=== PATIENT | female | born 1965 | race Caucasian/White ===

== ENCOUNTER 2016-11-18 11:33 | Emergency (ER) | payer OTHER ==
[2016-11-18 12:29] VITALS: BP 125/75
--- NOTE | 2016-11-18 13:41 | UC ---
UC General HPI - HPI Summary HPI Summary: 51 y/o female with multiple complaints - patient states has had continued back pain/ sacral pain since last seen on 2015. She states pain had improved slightly, but noted over past few months pain has increased to where she is unable to walk well, to her house chores. She states she needs medication to function. She has an appointment with a new primary physician in december. - patient was d/c'd from Dr. kumari's office in [place] due to rescheduling 3 times. She does not have refills on her medication. She is a diabetic. - History of Current Complaint Chief Complaint: UCBackPain Stated Complaint: BACK PAIN Time Seen by Provider: 11/18/16 12:58 Hx Obtained From: Patient Hx Last Menstrual Period: 05/07/12 Onset/Duration: Gradual Onset, Lasting Weeks Onset Severity: Moderate Current Severity: Moderate Pain Location at: lower back, sacrum Pain Radiates to: none Character: sharp, stabbing, throbbing, achy Aggravating: movement, sitting Alleviating: rest Associated Signs & Symptoms: Positive: Back Pain - Allergy/Home Medications Allergies/Adverse Reactions: Allergies Allergy/AdvReac Type Severity Reaction Status Date / Time No Known Allergies Allergy Verified 01/15/16 20:21 PMH/Surg Hx/FS Hx/Imm Hx Previously Healthy: No Endocrine History: Diabetes Respiratory History: Other - + TOb Other Respiratory History: + tob use Other History Of: Negative For: HIV, Hepatitis B, Hepatitis C, Anticoagulant Therapy - Surgical History Surgical History: Yes Surgery Procedure, Year, and Place: right ankle surgery r/t fx and dislocation - Family History Known Family History: Positive: Hypertension, Diabetes - Social History Alcohol Use: None Substance Use Type: None Smoking Status (MU): Light Every Day Tobacco Smoker Type: Cigarettes Amount Used/How Often: 1/2 ppd - Immunization History Most Recent Influenza Vaccination: fall 2014 Review of Systems Constitutional: Negative Skin: Negative Eyes: Negative ENT: Negative Respiratory: Negative Cardiovascular: Negative Gastrointestinal: Negative Genitourinary: Frequency, Urgency Motor: Negative Neurovascular: Negative Musculoskeletal: Arthralgia, Myalgia Neurological: Negative Psychological: Negative Is Patient Immunocompromised?: No All Other Systems Reviewed And Are Negative: Yes Physical Exam Triage Information Reviewed: Yes Appearance: Well-Appearing, Well-Nourished, Pain Distress - minimal at rest, moderate with movement Vital Signs: Initial Vital Signs Temp 98.5 F 11/18/16 12:24 Pulse 78 11/18/16 12:24 Resp 18 11/18/16 12:24 BP 125/75 11/18/16 12:24 Pulse Ox 97 11/18/16 12:24 Vital Signs Reviewed: Yes Cardiovascular: Positive: RRR, No Murmur, Pulses Normal - PT 2+ b/l Abdomen Description: Positive: Nontender, No Organomegaly, Soft Musculoskeletal: Positive: ROM Intact, Strength Limited @ - decreased strength with knee extension b/l 3/5 due to pain full flex, straight leg negative, Other : - neg log roll hips Neurological Exam: Normal Neurological: Positive: Alert, Muscle Tone Normal Psychological Exam: Normal Skin Exam: Normal Course/Dx - Course Course Of Treatment: Unable to verify with phamacy meds due to pharm computer being down, written for 10 day course of home meds, schedule appointment with physician sooner. lidoderm patch, motrin for back pain. - Differential Dx - Multi-Symptom Provider Diagnoses: lower back strain, OA lumbar spine, medication refill Discharge - Discharge Plan Condition: Good Disposition: HOME Prescriptions: Glucose Blood [Glucose Meter Test Strips] 1 benito ACHS #90 benito Ibuprofen TAB* [Motrin TAB* 600 MG] 600 mg PO Q8H PRN #30 tab PRN Reason: Pain Lancets 1 mis XX ACHS #90 mis Lidocaine PATCH 5%* [Lidoderm 5% Patch*] 1 patch TRANSDERM DAILY #15 patch Pravastatin Sodium [Pravachol] 20 mg PO DAILY #10 tab Sitagliptin Phosphate [Januvia] 50 mg PO DAILY #10 tab Patient Education Materials: Low Back Strain (ED) Referrals: No Primary Care Phys,NOPCP [Primary Care Provider] - Additional Instructions: - Follow up with primary physician within 1 week for check on medication and for refills, call for appointment - Lidoderm patch for back pain for mild- moderate pain
--- NOTE | 2016-11-18 13:45 | RAD ---
HISTORY: Sacral pain COMPARISONS: January 15, 2016, December 25, 2011 VIEWS: 5 , Frontal, lateral, coned-down lateral sacral, and bilateral oblique views of the lumbar spine. FINDINGS: ALIGNMENT: There is grade 1 anterolisthesis of L4 on L5 VERTEBRAL BODIES: The vertebral body heights are normal. The interpedicular distances are normal. There is anterolateral marginal osteophyte formation most pronounced at L1-L2. JOINTS: There is extensive facet osteoarthritic change most pronounced along the lower lumbar spine INTERVERTEBRAL DISCS: There is mild diffuse loss of intervertebral disc height. SOFT TISSUE: Unremarkable. OTHER: The pelvis is unremarkable. The lung bases are clear. IMPRESSION: FACET OSTEOARTHRITIS WITH DEGENERATIVE DISC DISEASE MOST PRONOUNCED ALONG THE LOWER LUMBAR SPINE
== END 2016-11-18 14:43 | disposition home or self-care (01) ==
LOC: UCEAST 11:33
DX: S39.012A Strain of muscle, fascia and tendon of lower back, initial encounter (principal); Y92.9 Unspecified place or not applicable; M47.896 Other spondylosis, lumbar region; Z76.0 Encounter for issue of repeat prescription; Z72.0 Tobacco use
CPT/HCPCS: 72110; 99212; G0463

== ENCOUNTER 2017-04-01 12:44 | Emergency (ER) | payer OTHER ==
[2017-04-01 13:01] VITALS: BP 135/70
--- NOTE | 2017-04-01 13:10 | UC ---
Back Pain HPI - HPI Summary HPI Summary: Pt presents with multiple complaints. She is accompanied by her niece. 1) She has been having b/l flank pain that is 10/10 for the last 10 days. Says it is getting progressively worse. Has dysuria and burning with urination for the last 3-4 days. 2) She has generalized abdominal discomfort that is cramping and "aches". She thinks she is , but says she has not had a menstrual period in many years. She has been nauseous with a decreased appetite for the last 2-3 days. 3) For the last 3 days she has felt very dizzy, lightheaded, and feels like she wants to "pass out" if she stands too long. 4) She is diabetic and has not been taking her Metformin due to her recent illness - thinks her sugar is up today. Has felt hot and cold with chills at times. Denies SOB, chest pain, vomiting, diarrhea, vaginal discharge/odor/bleeding, headache, vision changes, rashes, numbness, or tingling. - History of Current Complaint Chief Complaint: UCGeneralIllness Stated Complaint: LOWER BACK PAIN NAUSEA Time Seen by Provider: 04/01/17 12:54 Hx Obtained From: Patient, Family/Mental Health Advanced Practice Nurse Hx Last Menstrual Period: unknown ?: No Onset/Duration: Gradual Onset Timing: Constant Severity Initially: Severe Severity Currently: Severe Pain Intensity: 10 Pain Scale Used: 0-10 Numeric - Allergies/Home Medications Allergies/Adverse Reactions: Allergies Allergy/AdvReac Type Severity Reaction Status Date / Time No Known Allergies Allergy Verified 04/01/17 13:02 Home Medications: Home Medications Citalopram TAB* [Celexa TAB*] 40 mg PO DAILY 04/01/17 [History Confirmed ] Venlafaxine ER (NF) [Effexor ER (NF)] 150 mg PO BEDTIME 04/01/17 [History Confirmed 04/01/17] PMH/Surg Hx/FS Hx/Imm Hx Endocrine History: Diabetes, Dyslipidemia Cardiovascular History: Hypertension Psychological History: Anxiety, Depression Other History Of: Negative For: HIV, Hepatitis B, Hepatitis C, Anticoagulant Therapy - Surgical History Surgical History: Yes Surgery Procedure, Year, and Place: right ankle surgery r/t fx and dislocation - Family History Known Family History: Positive: Hypertension, Diabetes - Social History Lives: With Family Alcohol Use: None Substance Use Type: None Smoking Status (MU): Light Every Day Tobacco Smoker Type: Cigarettes Amount Used/How Often: 1/2 ppd - Immunization History Most Recent Influenza Vaccination: fall 2014 Review of Systems Constitutional: Fever, Chills, Fatigue, Other - Body aches Skin: Negative Eyes: Negative ENT: Negative Respiratory: Cough Cardiovascular: Negative Gastrointestinal: Abdominal Pain, Nausea Genitourinary: Dysuria, Frequency, Urgency Motor: Negative Neurovascular: Negative Musculoskeletal: Other: - b/l flank pain Neurological: Negative Psychological: Negative All Other Systems Reviewed And Are Negative: Yes Physical Exam Triage Information Reviewed: Yes Completion Of Physical Exam Limited Due To: Patient is uncooperative with exam - Would only remain lying on exam table and said it hurt to move Appearance: Ill-Appearing, Pain Distress, Obese Vital Signs: Initial Vital Signs Temp 98.6 F 04/01/17 12:53 Pulse 91 04/01/17 12:53 Resp 16 04/01/17 12:53 BP 135/70 04/01/17 12:53 Pulse Ox 100 04/01/17 12:53 Vital Signs Reviewed: Yes Eyes: Positive: Conjunctiva Clear, Other: - EOMI. Negative: Conjunctiva Inflamed, Discharge ENT: Positive: Hearing grossly normal, Pharynx normal, TMs normal, Uvula midline. Negative: Pharyngeal erythema, Nasal congestion, Nasal drainage, TM bulging, TM dull, TM red, Tonsillar swelling, Tonsillar exudate, Hoarse voice, Sinus tenderness Neck: Positive: Supple, No Lymphadenopathy, Other: - FORM. NTTP. Respiratory: Positive: Lungs clear, Normal breath sounds, No respiratory distress, No accessory muscle use Cardiovascular: Positive: RRR, No Murmur, Pulses Normal Abdomen Description: Positive: No Organomegaly, Soft, CVA Tenderness (R), CVA Tenderness (L), Other: - Generalized pain in all quads when palpated.. Negative : Distended, Guarding, [place] Tenderness Bowel Sounds: Positive: Present Neurological: Positive: Fatigued Skin: Negative: rashes, significant lesion(s) Back Pain Course/Dx - Course Course Of Treatment: POC glucose 303. Given her abomdinal pain, hyperglycemia, b/l flank pain, dizziness, and likely need for more comprehensive testing - I advised her to be seen in the ED. She and her family were agreeable to this and elected to go by ambulance. - Differential Dx/Diagnosis Provider Diagnoses: DM2 uncontrolled. Body aches. Dizziness. Generalized abdominal pain. Dysuria. Nausea Discharge - Discharge Plan Condition: Stable Disposition: TRANS HIGHER LVL OF CARE FAC Referrals: No Primary Care Phys,NOPCP [Primary Care Provider] -
== END 2017-04-01 13:44 | disposition short-term general hospital (02) ==
LOC: UCEAST 12:44
DX: E11.65 Type 2 diabetes mellitus with hyperglycemia (principal); Z91.14 Patient's other noncompliance with medication regimen; E78.5 Hyperlipidemia, unspecified; I10 Essential (primary) hypertension; F41.9 Anxiety disorder, unspecified; F32.9 Major depressive disorder, single episode, unspecified; F17.210 Nicotine dependence, cigarettes, uncomplicated
CPT/HCPCS: 99213; G0463

== ENCOUNTER 2017-04-01 14:01 | Emergency (ER) | payer OTHER ==
[2017-04-01 14:54] LABS: Urine Appearance Clear; Urine Blood Negative (Negative); Urine Color Straw; Urine Ketones Negative (Negative); Urine Protein Negative (Negative); Urine Specific Gravity 1.007 (1.010-1.030); Urine Urobilinogen Negative (Negative)
[2017-04-01 15:09] LABS: ABS Basophils 0.1 10^3/ul (0-0.2); ABS Eosinophils 0.1 10^3/ul (0-0.6); ABS Lymphocytes 1.8 10^3/ul (1.0-4.8); ABS Monocytes 0.3 10^3/ul (0-0.8); ABS Neutrophils 3.5 10^3/ul (1.5-7.7); ABS Nucleated RBC 0 10^3/ul; Hematocrit 42 % (35-47); Hemoglobin 14.6 g/dl (12.0-16.0); Mean Corpuscular HGB Conc 35 g/dl (31-36); Mean Corpuscular Hemoglobin 31 pg (27-31); Mean Corpuscular Volume 88 fL (80-97); Mean Platelet Volume 8 um3 (7.4-10.4); Nucleated Red Blood Cells % 0; Platelet Count 291 10^3/ul (150-450); Red Blood Count 4.74 10^6/ul (4.0-5.4); Red Cell Distribution Width 13 % (10.5-15); White Blood Count 5.7 10^3/ul (3.5-10.8)
[2017-04-01] MEDS ORDERED: Ketorolac INJ* 60 MG/2 ML VIAL IM ONE (16:26)
[2017-04-01 16:32] VITALS: BP 117/78
--- NOTE | 2017-04-01 18:21 | ED ---
Lashay Ladd Nilda, scribed for Charlie Martinez MD on 04/01/17 at 1447 . Complex/Multi-Sys Presentation - HPI Summary HPI Summary: This patient is a 51 year old F BIBA to [facility] with a chief complaint of constant back pain for the past 1.5 weeks. The patient rates the aching back pain 10/10 in severity. Symptoms aggravated and alleviated by nothing. Patient reports nausea, morning sickness, and heartburn. Pt states she believe she's "because I feel movement." Pt states tests were negative for the past four of her kids, and she was only able to confirm via sonogram. - History Of Current Complaint Chief Complaint: EDNauseaVomitDiarrh Time Seen by Provider: 04/01/17 14:14 Hx Obtained From: Patient Onset/Duration: Lasting Weeks Timing: Constant Severity Currently: Severe - 10/10 Location: Pain At: - back Aggravating Factor(s): nothing Alleviating Factor(s): nothing Associated Signs And Symptoms: Positive: Other - nausea, "morning sickness," heartburn, back pain - Allergies/Home Medications Allergies/Adverse Reactions: Allergies Allergy/AdvReac Type Severity Reaction Status Date / Time No Known Allergies Allergy Verified 04/01/17 13:02 PMH/Surg Hx/FS Hx/Imm Hx Endocrine/Hematology History: Reports: Hx Diabetes - type 2 dm Denies: Hx Anticoagulant Therapy, Hx Thyroid Disease Cardiovascular History: Reports: Hx Hypercholesterolemia Denies: Hx Congestive Heart Failure, Hx Deep Vein Thrombosis, Hx Hypertension , Hx Myocardial Infarction, Hx Pacemaker/ICD Respiratory History: Reports: Other Respiratory Problems/Disorders - current smoker Denies: Hx Asthma, Hx Chronic Obstructive Pulmonary Disease (COPD), Hx Lung Cancer, Hx Pneumonia, Hx Pulmonary Embolism GI History: Reports: Hx Gastroesophageal Reflux Disease Denies: Hx Gall Bladder Disease, Hx Gastrointestinal Bleed, Hx Ulcer, Hx Urosepsis History: Denies: Hx Kidney Stones, Hx Renal Disease Musculoskeletal History: Reports: Hx Back Problems - chronic back pain Neurological History: Reports: Other Neuro Impairments/Disorders - CHRONIC BACK PAIN Denies: Hx Dementia, Hx Migraine, Hx Seizures, Hx Transient Ischemic Attacks (TIA) Psychiatric History: Reports: Hx Anxiety, Hx Depression, Hx Inpatient Treatment - [facility]- ETOH, marijuana, alcohol, cocaine Denies: Hx Schizophrenia, Hx Bipolar Disorder, Hx Substance Abuse - Surgical History Surgery Procedure, Year, and Place: right ankle surgery r/t fx and dislocation Infectious Disease History: No Infectious Disease History: Denies: Hx Clostridium Difficile, Hx Hepatitis, Hx Human Immunodeficiency Virus (HIV), Hx of Known/Suspected MRSA, Hx Shingles, Hx Tuberculosis, Hx Known/ Suspected VRE, Hx Known/Suspected VRSA, History Other Infectious Disease, Traveled Outside the [place] in Last 30 Days - Family History Known Family History: Positive: Hypertension, Diabetes - Social History Alcohol Use: None Substance Use Type: Reports: None Smoking Status (MU): Heavy Every Day Tobacco Smoker Type: Cigarettes Amount Used/How Often: 1/2 ppd Review of Systems Positive: Other - "heartburn" Positive: Nausea, Other - "morning sickness" Positive: Other - back pain All Other Systems Reviewed And Are Negative: Yes Physical Exam - Summary Physical Exam Summary: VITAL SIGNS: Reviewed. GENERAL: Patient is a well-developed and nourished female who is lying comfortable in the stretcher. Patient is not in any acute respiratory distress. HEAD AND FACE: No signs of trauma. No ecchymosis, hematomas or skull depressions. No sinus tenderness. EYES: PERRLA, EOMI x 2, No injected conjunctiva, no nystagmus. EARS: Hearing grossly intact. Ear canals and tympanic membranes are within normal limits. MOUTH: Oropharynx within normal limits. NECK: Supple, trachea is midline, no adenopathy, no JVD, no carotid bruit, no c- spine tenderness, neck with full ROM. CHEST: Symmetric, no tenderness at palpation LUNGS: Clear to auscultation bilaterally. No wheezing or crackles. CVS: Regular rate and rhythm, S1 and S2 present, no murmurs or gallops appreciated. ABDOMEN: Soft, non-tender. No signs of distention. No rebound no guarding, and no masses palpated. Bowel sounds are normal. EXTREMITIES: FROM in all major joints, no edema, no cyanosis or clubbing. NEURO: Alert and oriented x 3. No acute neurological deficits. Speech is normal and follows commands. SKIN: Dry and warm Triage Information Reviewed: Yes Vital Signs On Initial Exam: Initial Vitals Temp Pulse Resp BP Pulse Ox 98.3 F 77 11 126/63 98 04/01/17 14:23 04/01/17 14:23 04/01/17 14:23 04/01/17 14:23 04/01/17 14:23 Vital Signs Reviewed: Yes Diagnostics - Vital Signs Vital Signs Temp Pulse Resp BP Pulse Ox 04/01/17 14:34 73 23 94 04/01/17 14:33 110/72 04/01/17 14:23 98.3 F 77 11 126/63 98 - Laboratory Lab Results: Lab Results 04/01/17 04/01/17 04/01/17 Range/Units 14:35 14:55 14:55 WBC 5.7 (3.5-10.8) 10^3/ul RBC 4.74 (4.0-5.4) 10^6/ul Hgb 14.6 (12.0-16.0) g/dl Hct 42 (35-47) % MCV 88 (80-97) fL MCH 31 (27-31) pg MCHC 35 (31-36) g/dl RDW 13 (10.5-15) % Plt Count 291 (150-450) 10^3/ul MPV 8 (7.4-10.4) um3 Neut % (Auto) 60.7 (38-83) % Lymph % (Auto) 31.0 (25-47) % [place] % (Auto) 6.1 (1-9) % Eos % (Auto) 1.0 (0-6) % Baso % (Auto) 1.2 (0-2) % Absolute Neuts (auto) 3.5 (1.5-7.7) 10^3/ul Absolute Lymphs (auto) 1.8 (1.0-4.8) 10^3/ul Absolute Monos (auto) 0.3 (0-0.8) 10^3/ul Absolute Eos (auto) 0.1 (0-0.6) 10^3/ul Absolute Basos (auto) 0.1 (0-0.2) 10^3/ul Absolute Nucleated RBC 0 10^3/ul Nucleated RBC % 0 Sodium 133 (133-145) mmol/L Potassium 3.9 (3.5-5.0) mmol/L Chloride 100 L (101-111) mmol/L Carbon Dioxide 26 (22-32) mmol/L Anion Gap 7 (2-11) mmol/L BUN 13 (6-24) mg/dL Creatinine 0.61 (0.51-0.95) mg/dL Est GFR ( Amer) 132.5 (>60) Est GFR (Non-Af Amer) 103.0 (>60) BUN/Creatinine Ratio 21.3 H (8-20) Glucose 313 H (70-100) mg/dL Calcium 9.5 (8.6-10.3) mg/dL Total Bilirubin 0.50 (0.2-1.0) mg/dL AST 11 L (13-39) U/L ALT 15 (7-52) U/L Alkaline Phosphatase 90 (34-104) U/L C-Reactive Protein 6.50 H (< 5.00) mg/L Total Protein 7.0 (6.4-8.9) g/dL Albumin 3.9 (3.2-5.2) g/dL Globulin 3.1 (2-4) g/dL Albumin/Globulin Ratio 1.3 (1-3) Beta HCG, Quant 2.28 mIU/mL Urine Color Straw Urine Appearance Clear Urine pH 7.0 (5-9) Ur Specific [place] 1.007 L (1.010-1.030) Urine Protein Negative (Negative) Urine Ketones Negative (Negative) Urine Blood Negative (Negative) Urine Nitrate Negative (Negative) Urine Bilirubin Negative (Negative) Urine Urobilinogen Negative (Negative) Ur Leukocyte Esterase Negative (Negative) Urine Glucose 3+(>=500 mg/dl) H (Negative) Result Diagrams: 04/01/17 14:55 04/01/17 14:55 Lab Statement: Any lab studies that have been ordered have been reviewed, and results considered in the medical decision making process. Complex Multi-Symp Course/Dx Assessment/Plan: This patient is a 51 year old F BIBA to [facility] with a chief complaint of constant back pain for the past 1.5 weeks. The patient rates the aching back pain 10/10 in severity. Symptoms aggravated and alleviated by nothing. Patient reports nausea, morning sickness, and heartburn. Pt states she believe shes because "I feel movement." Pt states tests were negative for the past four of her kids, and she was only able to confirm via sonogram. Pending labs. Test results are w/o significant abnormality except glucose 313. Serum beta HCG is negative for . UA is negative for UTI. Therefore, pt waa given Toradol for back pain and will be D/C home with follow up with PCP. The pt is hemodynamically stable, alert and oriented x3. Pt has no SI or HI. Dx. Back pain. Pt understands and is agreeable with this plan. - Diagnoses Differential Diagnoses/HQI/PQRI: Urinary Tract Infection, Other - Back pain. strain, UTI, Provider Diagnoses: Back pain Discharge - Discharge Plan Condition: Stable Disposition: HOME Patient Education Materials: Back Pain (ED) Referrals: [facility] [place] PHYSICIAN REFERRAL [Outside] - 3 Days () Additional Instructions: RETURN TO THE EMERGENCY DEPARTMENT FOR CHANGING OR WORSENING SYMPTOMS. The documentation as recorded by the Lashay leyva Nilda accurately reflects the service I personally performed and the decisions made by Juan valle Walter, MD.
== END 2017-04-01 17:05 | disposition home or self-care (01) ==
LOC: ED 14:01
DX: M54.9 Dorsalgia, unspecified (principal); F17.210 Nicotine dependence, cigarettes, uncomplicated; E11.9 Type 2 diabetes mellitus without complications; E78.00 Pure hypercholesterolemia, unspecified; G89.29 Other chronic pain
CPT/HCPCS: 36415; 80053; 81003; 84702; 85025; 86140; 99282; J1885

== ENCOUNTER 2018-07-07 08:57 | Emergency (ER) | payer SELFPAY ==
--- NOTE | 2018-07-07 10:26 | UC ---
Back Pain HPI - HPI Summary HPI Summary: PATIENT WALKED OUT ONTO HER PORCH 2 DAYS AGO WHEN SHE FELL THROUGH A BROKEN FLOORBOARD AND INJURED HER LOW BACK AND RIGHT FOOT. STATES SHE HAS PAIN RADIATING DOWN THE BACK OF HER LEFT LEG. DENIES ANY NUMBNESS, TINGLING OR SADDLE ANESTHESIA. NO LOSS OF BOWEL OR BLADDER CONTROL. RIGHT FOOT IS RED AND SWOLLEN AND SHE HAS PAIN WHEN AMBULATING. - History of Current Complaint Chief Complaint: UCBackPain Stated Complaint: BACK/LEG PAIN Time Seen by Provider: 07/07/18 10:14 Hx Obtained From: Patient Hx Last Menstrual Period: unknown Onset/Duration: Sudden Onset, Lasting Days, Still Present Timing: Constant Severity Initially: Moderate Severity Currently: Moderate Pain Intensity: 10 Pain Scale Used: 0-10 Numeric Back Pain: Is Discrete @ - LOW BACK Character: Sharp Aggravating Factor(s): Movement, Bending Alleviating Factor(s): Rest Associated Signs And Symptoms: Negative: Swelling, Redness, Bruising, Weakness, Numbness, Bladder Incontinence, Bowel Incontinence - Allergies/Home Medications Allergies/Adverse Reactions: Allergies Allergy/AdvReac Type Severity Reaction Status Date / Time No Known Allergies Allergy Verified 07/07/18 09:06 Home Medications: Home Medications Ascorbic Acid TAB* [Vitamin C TAB*] 1,000 mg PO DAILY 07/07/18 [History Confirmed 07/07/18] Cholecalciferol TAB* [Vitamin D TAB*] 400 mg PO DAILY 07/07/18 [History Confirmed 07/07/18] [place]-3 Fatty Acids/Fish Oil [Fish Oil 1,000 mg Softgel] 1 cap PO DAILY [History Confirmed 07/07/18] PMH/Surg Hx/FS Hx/Imm Hx - Additional Past Medical History Additional PMH: FIBROMYALGIA Endocrine History: Diabetes, Dyslipidemia Psychological History: Anxiety, Depression Other History Of: Negative For: HIV, Hepatitis B, Hepatitis C, Anticoagulant Therapy - Surgical History Surgical History: Yes Surgery Procedure, Year, and Place: right ankle surgery r/t fx and dislocation - Family History Known Family History: Positive: Hypertension, Diabetes - Social History Alcohol Use: None Substance Use Type: None Smoking Status (MU): Heavy Every Day Tobacco Smoker Type: Cigarettes Amount Used/How Often: 1/2 ppd - Immunization History Most Recent Influenza Vaccination: fall 2014 Review of Systems All Other Systems Reviewed And Are Negative: Yes Constitutional: Positive: Negative Skin: Positive: Other - RIGHT FOOT REDNESS. Negative: Bruising Respiratory: Positive: Negative Cardiovascular: Positive: Negative Gastrointestinal: Positive: Negative Musculoskeletal: Positive: Arthralgia, Decreased ROM, Edema, Myalgia Physical Exam Triage Information Reviewed: Yes Appearance: Well-Appearing, No Pain Distress, Well-Nourished Vital Signs: Initial Vital Signs Temp 98.0 F 07/07/18 09:11 Pulse 93 07/07/18 09:11 Resp 18 07/07/18 09:11 BP 133/92 07/07/18 09:11 Pulse Ox 96 07/07/18 09:11 Vital Signs Reviewed: Yes Eyes: Positive: Conjunctiva Clear ENT: Positive: Hearing grossly normal Neck: Positive: Supple Respiratory: Positive: No respiratory distress, No accessory muscle use Cardiovascular: Positive: Pulses Normal Abdomen Description: Positive: Soft Musculoskeletal: Positive: ROM Limited @, Edema @ - RIGHT FOOT/TOES, Other: - TTP RIGHT FOREFOOT AND TOES 1-4. Neurological: Positive: Alert Psychological: Positive: Age Appropriate Behavior Skin: Positive: Other - ROGHT FOOT REDNESS Diagnostics - Radiology L-SPINE XRAYS Radiology Interpretation Completed By: Radiologist Summary of Radiographic Findings: DEGENERATIVE DISC DISEASE AND OSTEOARTHRITIS. NO ACUTE OSSEOUS INJURY. RIGHT FOOT XRAYS Radiology Interpretation Completed By: Radiologist Summary of Radiographic Findings: STATUS POST RIGHT ANKLE ORIF. NO ACUTE OSSEOUS INJURY Back Pain Course/Dx - Differential Dx/Diagnosis Provider Diagnosis: Acute low back pain, Right foot sprain Discharge - Sign-Out/Discharge Documenting (check all that apply): Patient Departure All imaging exams completed and their final reports reviewed: Yes - Discharge Plan Condition: Stable Disposition: HOME Patient Education Materials: Osteoarthritis (ED), Contusion in Adults (ED), Foot Sprain (ED), Degenerative Disc Disease (ED) Referrals: Starla Spangler MD [Medical Doctor] - If Needed Miguel Ángel Koenig MD [Primary Care Provider] - If Needed Additional Instructions: X-RAYS OF YOUR LUMBAR SPINE TODAY SHOW SOME DEGENERATIVE DISC DISEASE AND OSTEOARTHRITIS. YOU LIKELY CAUSED A FLARE OF THESE CONDITIONS WHEN YOU FELL 2 DAYS AGO. TAKE OTC MEDICATION NEEDED FOR DISCOMFORT. BE SURE TO GO THROUGH SLOW RANGE OF MOTION AND STRETCHING EXERCISES DAILY TO PREVENT STIFFENING UP AND MAKING THE DISCOMFORT WORSE. X-RAYS OF THE RIGHT FOOT ARE UNREMARKABLE. POSTOP SHOE TO HELP OFFLOAD PRESSURE FROM THE FRONT OF YOUR FOOT WHICH WILL HOPEFULLY HELP WITH YOUR FOOT DISCOMFORT. REST, ICE, ELEVATE. FOLLOW-UP WITH ORTHOPEDICS IF YOUR SYMPTOMS ARE NOT IMPROVING OVER THE NEXT 1-2 WEEKS. - Billing Disposition and Condition Condition: STABLE Disposition: Home
[2018-07-07 11:54] VITALS: BP 136/98
== END 2018-07-07 11:51 | disposition home or self-care (01) ==
LOC: UCEAST 08:57
DX: M54.5 Low back pain (principal); S93.601A Unspecified sprain of right foot, initial encounter; W13.3XXA Fall through floor, initial encounter; Y92.008 Other place in unspecified non-institutional (private) residence as the place of occurrence of the external cause; M51.36 Other intervertebral disc degeneration, lumbar region; M47.816 Spondylosis without myelopathy or radiculopathy, lumbar region; M79.7 Fibromyalgia; E11.9 Type 2 diabetes mellitus without complications; E78.5 Hyperlipidemia, unspecified; F41.9 Anxiety disorder, unspecified; F32.9 Major depressive disorder, single episode, unspecified; F17.210 Nicotine dependence, cigarettes, uncomplicated
CPT/HCPCS: 72100; 99211; G0463